=== PATIENT | female | born 1995 | race Caucasian/White ===

== ENCOUNTER 2020-12-17 06:20 | Inpatient (IN) ==
[2020-12-17] MEDS ORDERED: MEPERIDINE 50 MG/1 ML VIAL IV PRN (06:29)
[2020-12-17 06:53] LABS: Basophils % 0.2 % (0.0-0.8); Eosinophils # 0.1 10*3/uL (0.0-0.87); Eosinophils % 1.1 % (0.00-10.9); Hemoglobin 12.7 GM/DL (12.0-16.0); Immature Granulocytes % 0.7 %; Immature Granulocytes Absolute 0.06 #; Lymphocytes # 2.4 10*3/uL (1.4-4.0); Lymphocytes % 27.2 % (21.3-54.2); Mean Corpuscular HGB Conc 35.3 GM/DL (32-36); Mean Corpuscular Volume 92.5 FL (87-102); Mean Platelet Volume 11.2 FL (9.6-12.0); Monocytes % 9.1 % (1.7-12.7); Neutrophils % 61.7 % (38.7-73.9); Platelet Count 185 T/CUMM (130-400); Red Blood Count 3.89 MC/CUMM (3.8-5.5); Red Cell Distribution Width 12.6 % (9.3-17.3); White Blood Count 8.8 T/CUMM (4-12)
[2020-12-17] MEDS ORDERED: AMPICILLIN INJ 2,000 MG in SODIUM CHLORIDE 0.9% 100 ML IV ONE (07:30)
[2020-12-17] MEDS: LACTATED RINGERS 1,000 ML IV SCH ×3 (07:48→22:23)
[2020-12-17] MEDS: AMPICILLIN INJ 1,000 MG in SODIUM CHLORIDE 0.9% 100 ML IV SCH ×4 (11:33→22:32)
[2020-12-17] MEDS: BUTORPHANOL 2 MG/ML VIAL IV PRN ×2 (15:11→22:24)
[2020-12-17] MEDS: ONDANSETRON 4 MG/2 ML VIAL IV PRN (22:23)
[2020-12-18] MEDS: AMPICILLIN INJ 1,000 MG in SODIUM CHLORIDE 0.9% 100 ML IV SCH ×4 (02:30→16:15)
[2020-12-18] MEDS: BUTORPHANOL 2 MG/ML VIAL IV PRN (02:56)
[2020-12-18] MEDS ORDERED: OXYTOCIN/LR 20 UNIT/1,000 ML BAG IV SCH (06:00)
[2020-12-18] MEDS: ONDANSETRON 4 MG/2 ML VIAL IV PRN ×2 (06:30→12:55)
[2020-12-18] MEDS: LACTATED RINGERS 1,000 ML IV SCH ×2 (06:41→09:31)
[2020-12-18] MEDS ORDERED: diphenhydrAMINE 50 MG/1 ML VIAL IV PRN ×2 (08:14)
[2020-12-18] MEDS ORDERED: NALOXONE 0.4 MG/ML VIAL IV PRN (08:14)
[2020-12-18] MEDS ORDERED: PROMETHAZINE 25 MG/1 ML VIAL IM ONE (08:14)
[2020-12-18] MEDS ORDERED: ONDANSETRON 4 MG/2 ML VIAL IV ONE (08:14)
[2020-12-18] MEDS ORDERED: FAMOTIDINE 20 MG/2 ML VIAL IV ONE (08:14)
[2020-12-18] MEDS ORDERED: hydrOXYzine HCL 25 MG/1 ML VIAL IM PRN (08:14)
[2020-12-18] MEDS ORDERED: ePHEDrine 50 MG/ML VIAL IV PRN (08:14)
[2020-12-18] MEDS ORDERED: CITRIC ACID/SODIUM CITRATE 30 ML UDCUP PO ONE (08:14)
[2020-12-18] MEDS ORDERED: fentaNYL 2 MCG/ROPIV 0.2% EPID 100 ML EPIDURAL SCH (08:30)
[2020-12-18] MEDS ORDERED: LIDOCAINE MPF 2% /EPI 20 ML VIAL ONE (09:16)
[2020-12-18] MEDS ORDERED: LIDOCAINE 2% 5 ML VIAL ONE (14:25)
[2020-12-18] MEDS ORDERED: SODIUM CHLORIDE 0.9% 250 ML IV ONE (15:59)
[2020-12-18] MEDS ORDERED: miSOPROStoL 200 MCG TABLET ONE (16:28)
[2020-12-18] MEDS ORDERED: TRANEXAMIC ACID 1,000 MG/10 ML VIAL ONE (16:28)
[2020-12-18] MEDS ORDERED: CARBOPROST TROMETHAMINE 250 MCG/ML AMP IM ONE ×2 (16:29→19:00)
[2020-12-18] MEDS ORDERED: METHYLERGONOVINE 0.2 MG/1 ML AMP ONE (16:29)
[2020-12-18] MEDS ORDERED: METHYLERGONOVINE 0.2 MG/1 ML AMP IM ONE (18:58)
[2020-12-18] MEDS ORDERED: miSOPROStoL 200 MCG TABLET VAG ONE (19:00)
[2020-12-18] MEDS ORDERED: PROMETHAZINE 25 MG/1 ML VIAL ONE (19:27)
[2020-12-18] MEDS ORDERED: BENZOCAINE 20%/MENTHOL 0.5% SPRAY 56 GM CAN TOP PRN (19:38)
[2020-12-18] MEDS ORDERED: ONDANSETRON 4 MG/2 ML VIAL IV PRN (19:38)
[2020-12-18] MEDS ORDERED: DIPH/TET/ACEL PERT BOOSTER VACCINE 0.5 ML VIAL IM ONE (19:38)
[2020-12-18] MEDS ORDERED: oxyCODONE/ACETAMINOPHEN 5-325 MG TABLET PO PRN ×2 (19:38)
[2020-12-18] MEDS ORDERED: WITCH HAZEL PADS 100/JAR TOP PRN (19:38)
[2020-12-18] MEDS ORDERED: MEASLES/MUMPS/RUBELLA VACCINE 0.5 ML VIAL SUBCUT ONE (19:38)
[2020-12-18] MEDS ORDERED: HYDROCORTISONE 2.5% RECTAL CREAM 30 GM TUBE TOP PRN (19:38)
[2020-12-18] MEDS ORDERED: LANOLIN 50% CREAM 0.3 OZ TUBE TOP PRN (19:38)
[2020-12-18] MEDS ORDERED: BISACODYL 10 MG SUPP RECTAL PRN (19:38)
[2020-12-18] MEDS ORDERED: RHO(D) IMMUNE GLOBULIN 300 MCG SYRINGE IM ONE (19:38)
[2020-12-18] MEDS ORDERED: OXYTOCIN/LR 20 UNIT/1,000 ML BAG IV ONE (19:38)
[2020-12-18] MEDS ORDERED: ACETAMINOPHEN 325 MG TABLET PO PRN (19:38)
[2020-12-18] MEDS: DOCUSATE SODIUM 100 MG CAPSULE PO SCH (20:44)
[2020-12-18] MEDS: IBUPROFEN 800 MG TABLET PO PRN (20:44)
[2020-12-19] MEDS: METHYLERGONOVINE 0.2 MG TABLET PO SCH ×4 (00:16→18:03)
[2020-12-19 05:34] LABS: Basophils % 0.1 % (0.0-0.8); Hematocrit 32.4 VOL% (35.7-47.0); Immature Granulocytes % 0.6 %; Immature Granulocytes Absolute 0.13 #; Lymphocytes # 3.2 10*3/uL (1.4-4.0); Lymphocytes % 15.6 % (21.3-54.2); Mean Platelet Volume 11.1 FL (9.6-12.0); Monocytes % 6.4 % (1.7-12.7); Neutrophils % 77.3 % (38.7-73.9); Platelet Count 203 T/CUMM (130-400); Red Blood Count 3.41 MC/CUMM (3.8-5.5); Red Cell Distribution Width 12.7 % (9.3-17.3); White Blood Count 20.6 T/CUMM (4-12)
[2020-12-19 06:00] LABS: Anisocytosis 1+; Band Neutrophils 10 % (0-10); Lymphocytes 19 % (20-55); Platelet Estimate Normal; Segmented Neutrophils 64 % (50-85); Total Cells Counted 100
[2020-12-19] MEDS: IBUPROFEN 800 MG TABLET PO PRN ×3 (08:00→22:10)
[2020-12-19] MEDS: DOCUSATE SODIUM 100 MG CAPSULE PO SCH ×2 (08:00→20:21)
[2020-12-19] MEDS ORDERED: ACETAMINOPHEN/CODEINE 300-30 MG TABLET PO PRN ×2 (22:58)
[2020-12-20] MEDS: IBUPROFEN 800 MG TABLET PO PRN (06:18)
[2020-12-20 09:03] VITALS: BP 131/67
[2020-12-20] MEDS: DOCUSATE SODIUM 100 MG CAPSULE PO SCH (09:07)
== END 2020-12-20 11:45 | disposition home or self-care (01) | DRG 768 ==
LOC: N.LDOUT 06:20 → N.LD 06:21 → N.OB 12-18 23:50
PROVIDERS: ADMIT Obstetrics & Gynecology; ATTEND Obstetrics & Gynecology